=== PATIENT | male | born 1940 | race African-American/Black ===

== ENCOUNTER 2025-01-12 03:04 | Emergency (ER) | payer MEDICARE ==
[~2025-01-12] VITALS: Ht 170.2 cm; Wt 66.9 kg
[~2025-01-12 03:04] MED LIST: ATOR20TA PO; DOCU-422 PO; FINA5TAB11 PO; HYDR50TA39 PO; LACT-390 PO; PEPJ2 IV; TAMS-54 PO
[2025-01-12 03:15] VITALS: O2SAT 95
[2025-01-12 03:18] VITALS: BP 122/52; PULSE 75; RESP 18; TEMP 36.6; O2SAT 98
[2025-01-12 04:40] LABS: CLARITY URINE CLEAR (CLEAR); COLOR URINE YELLOW (YELLOW); GLUCOSE URINE NEGATIVE (NEGATIVE); KETONES URINE NEGATIVE (NEGATIVE); LEUKOCYTE ESTERASE URINE 3+ (NEGATIVE); NITRITE URINE POSITIVE (NEGATIVE); OCCULT BLOOD URINE 1+ (NEGATIVE); PH URINE 7.0 (4.5-8.0); PROTEIN URINE NEGATIVE (NEGATIVE); SPECIFIC GRAVITY URINE 1.014 (1.005-1.030); UROBILINOGEN URINE 0.2 E.U./dL (0.2-1.0)
[2025-01-12 06:03] LABS: SQUAMOUS EPITHELIAL CELL URINE NONE SEEN /lpf (RARE/1+)
[2025-01-12 06:04] LABS: WBC URINE 15-25 /hpf (0-2)
[2025-01-12 06:05] LABS: BACTERIA URINE 4+; RBC URINE 0-2 /hpf (0-2)
[2025-01-12] MEDS ORDERED: CEFP200T13 MT (06:07)
== END 2025-01-12 06:30 | disposition home or self-care (01) ==
LOC: ER 03:04
DX: T83.9XXA Unspecified complication of genitourinary prosthetic device, implant and graft, initial encounter (principal); N30.90 Cystitis, unspecified without hematuria; Z79.899 Other long term (current) drug therapy; Y92.89 Other specified places as the place of occurrence of the external cause
CPT/HCPCS: 81003; 87077; 87186; 99282